=== PATIENT | female | born 1965 ===

== ENCOUNTER 2017-06-10 05:35 | Day surgery (SDC) | payer OTHER ==
[~2017-06-10 05:35] MED LIST: SYNTHROID75 MCG PO
[2017-06-10] MEDS ORDERED: PERCOCET 5-3251 EACH PO (08:41)
[2017-06-10] MEDS ORDERED: RECTICARE30 GM TOP (08:41)
== END 2017-06-10 14:15 | disposition home or self-care (01) ==
LOC: CIR.AMB 05:35
DX: K60.1 Chronic anal fissure (principal); K60.3 Anal fistula